=== PATIENT | female | born 1955 | race African-American/Black ===

== ENCOUNTER 2018-08-19 23:15 | Emergency (ER) | payer SELFPAY ==
[~2018-08-19] VITALS: Ht 162.6 cm; Wt 102.0 kg
[2018-08-20] MEDS ORDERED: IBUPROFEN 600MG TABLET PO ONE (02:00)
[2018-08-20] MEDS ORDERED: METHYLPREDNISOLONE SOD SUCC 125 MG/2 ML VIAL IM ONE (02:00)
[2018-08-20 03:57] VITALS: BP 146/86
== END 2018-08-20 04:00 | disposition home or self-care (01) ==
LOC: ER 23:15
DX: J02.9 Acute pharyngitis, unspecified (principal); R03.0 Elevated blood-pressure reading, without diagnosis of hypertension
CPT/HCPCS: 87070; 87430; 99283; Z7610; J2930